=== PATIENT | male | born 1975 | race Two or more races ===

== ENCOUNTER 2016-11-23 11:49 | Emergency (ER) | payer SELFPAY ==
[~2016-11-23] VITALS: Ht 162.6 cm; Wt 77.1 kg
== END 2016-11-23 12:52 | disposition home or self-care (01) ==
LOC: CFTX 11:49 → CED 11:49 → CFTX 12:43
DX: L25.9 Unspecified contact dermatitis, unspecified cause (principal); F17.200 Nicotine dependence, unspecified, uncomplicated; Z88.0 Allergy status to penicillin
CPT/HCPCS: 99282